=== PATIENT | female | born 1975 | race Caucasian/White ===

== ENCOUNTER 2020-09-28 14:23 | Outpatient (RCR) | payer OTHER ==
[2020-12-14] MEDS ORDERED: FERR324T4 PO (17:09)
[2020-12-14] MEDS ORDERED: OXYC1TAB11 PO ×2 (17:42→17:58)
== END 2020-12-27 | disposition home or self-care (01) ==
LOC: ONC 14:23
PROVIDERS: ATTEND Radiology Radiation Oncology
DX: C50.111 Malignant neoplasm of central portion of right female breast (principal)
CPT/HCPCS: 99204

== ENCOUNTER → 2020-09-29 | Outpatient (CLI) | payer OTHER ==
[~2020-09-29] MED LIST: GADOBUTROL 7.5 MMOL/7.5 ML (GADAVIST) VIAL IV ONE
--- NOTE | 2020-09-30 08:07 | Diagnostic Imaging Report ---
Reason for examination: Bilateral breast masses. Previous studies from [place] from 07/01/2020 were reviewed. TECHNIQUE: Utilizing 1.5 Arlette Siemens magnet, patient was placed in a prone position with a dedicated breast coil utilized. Axial STIR and fat sat T2 precontrasted images and axial T1 with and without fat-sat images were obtained. Postcontrast high-resolution dynamic images were also obtained. Pre and post contrasted images are then evaluated with [employer] for evaluation of possible angiogenesis. 6 mL of Gadavist was injected. The breast tissue is heterogeneously dense. There is mild background parenchymal enhancement. RIGHT BREAST: There is an irregular enhancing mass in the right breast at 12 o'clock position 6 cm from the nipple correlating with the previous mammogram and ultrasound findings. There is an in situ biopsy marker but the biopsy results are still pending at the time of interpretation. This mass is suspicious for carcinoma. Dimensions are 1 cm x 1 cm x 1 cm. There is no evidence for multifocal, multicentric disease. No skin, nipple or chest wall involvement. LEFT BREAST: There is an enhancing mass in the left breast at the 1 o'clock position 6 cm from the nipple. A possible additional small mass is located in the central left breast 6 cm from the nipple measuring 0.8 cm in largest diameter. These could be fibroadenomas. MILANA BASINS: No suspicious adenopathy in the bilateral regional milana basins. IMPRESSION: 1. There is a suspicious irregular enhancing mass in the right breast at the 12 o'clock position 6 cm from the nipple correlating with the previous outside mammogram and ultrasound images. The mass is suspicious for malignancy. There is a biopsy marker within the mass but the results are not known at the time of interpretation. If pathology does show a malignancy in this location, this appears to be a unifocal lesion with measurements of 1 cm x 1 cm x 1 cm. Correlation and follow up with pathology is needed. 2. There is one mass in the left breast at the 1 o'clock position 6 cm from the nipple corresponding with an mass on mammography. Ultrasound is recommended with ultrasound-guided biopsy if clinically indicated. 3. There is a possible 0.8 cm mass in the central left breast, middle depth, 6 cm from the nipple. Ultrasound is recommended with ultrasound-guided biopsy if clinically indicated. ACR BI-RADS Category 4: Suspicious abnormality. Recommendations: Follow up with pathology for the right breast mass biopsy. Left breast 2nd look ultrasound in the 2 locations described above with biopsy of one or both locations as clinically indicated. Dictated by: Dictated on workstation # [id number]
== END ==
LOC: RAD 14:51
PROVIDERS: ATTEND Surgery
DX: C50.811 Malignant neoplasm of overlapping sites of right female breast (principal); N63.21 Unspecified lump in the left breast, upper outer quadrant
CPT/HCPCS: 77049

== ENCOUNTER → 2020-10-05 | Outpatient (CLI) | payer OTHER ==
--- NOTE | 2020-10-06 09:19 | Diagnostic Imaging Report ---
INDICATION: Right breast carcinoma. Patient had abnormal MRI demonstrating abnormalities of the left breast. Study is performed for 2nd look ultrasound. Correlation is made with MRI breast study from 09/29/2020. 1:00 location left breast 6 cn from the nipple demonstrates a hypoechoic solid nodule measuring 10 mm x 8 mm x 8 mm. This is indeterminant. There is an ovoid hypoechoic nodule retroareolar 6:00 location measuring 9 mm x 3 mm x 6 mm. No internal vascularity seen. No other abnormalities are detected. IMPRESSION: BI-RADS Category 4 1. Hypoechoic solid nodule 1:00 location left breast 6 cm from the nipple. While this could represent a fibroadenoma, tissue sampling is recommended. This would be amenable to ultrasound-guided core biopsy. 2. Indeterminate hypoechoic nodule retroareolar 6:00 location. Tissue sampling of this lesion with ultrasound guidance could be performed as well. Dictated by: Dictated on workstation # [id number]
== END ==
LOC: RAD 10:45
PROVIDERS: ATTEND Surgery
DX: C50.811 Malignant neoplasm of overlapping sites of right female breast (principal); N63.21 Unspecified lump in the left breast, upper outer quadrant; Z17.0 Estrogen receptor positive status [ER+]
CPT/HCPCS: 76642

== ENCOUNTER → 2020-10-17 | Outpatient (CLI) | payer OTHER ==
[~2020-10-17] VITALS: Ht 154.9 cm; Wt 67.3 kg
[~2020-10-17] MED LIST changes: -GADOBUTROL 7.5 MMOL/7.5 ML (GADAVIST) VIAL IV ONE; +LIDOCAINE 1% INJ 20 ML 20 ML VIAL INJ ONE
--- NOTE | 2020-10-17 09:57 | Diagnostic Imaging Report ---
INDICATION: Left breast nodule. Patient presents for biopsy. Correlation is made with breast ultrasound from 10/05/2020. Sonographic interrogation of the left breast was performed. Patient presented for 2 biopsies. Biopsy of a nodule at 1:00 location as well as a questionable cystic lesion at the 6:00 retroareolar region. In surveying the retroareolar region today only a ductal dilatation is identified. There is a small cyst but no concerning mass is identified. Therefore, a retroareolar lesion will not be biopsied. Ultrasound imaging of the upper left breast was performed to evaluate appropriate entry site. The left breast was then prepped and draped in usual sterile fashion. Small amount 1% lidocaine was utilized for local anesthesia. Hand held 13-gauge mammotome vacuum-assisted device was advanced and placed along the undersurface of the hypoechoic nodule 1:00 location. 4 core biopsies were obtained. Marker clip was then deployed. Hemostasis was obtained using manual compression. Patient tolerated the procedure well and was sent for post procedure mammogram in satisfactory condition. IMPRESSION: Successful ultrasound guided core biopsy of the hypoechoic nodule at 1:00 location of the left breast utilizing hand-held vacuum-assisted mammotome device. Pathology results are currently pending. Dictated by: Dictated on workstation # [id number]
--- NOTE | 2020-10-17 11:53 | Diagnostic Imaging Report ---
INDICATION: Left breast nodule, status post ultrasound-guided biopsy. 2-D CC and ML mammography was performed after patient underwent ultrasound guided biopsy of a nodule in the upper left breast. Images demonstrate a marker clip in the upper and outer aspect of left breast, adjacent to a nodule. The left breast is heterogeneously dense. IMPRESSION: Biopsy clip appears to be in appropriate location in the upper and outer aspect of the left breast, status post ultrasound-guided core biopsy. Dictated by: Dictated on workstation # [id number]
== END ==
LOC: RAD 08:33
PROVIDERS: ATTEND Family Medicine
DX: D48.62 Neoplasm of uncertain behavior of left breast (principal); N63.21 Unspecified lump in the left breast, upper outer quadrant
CPT/HCPCS: 19083; 77065; A4648; G0279

== ENCOUNTER 2020-12-12 16:29 | Inpatient (IN) | payer OTHER ==
[2020-12-12] VITALS (7 sets, daily range): BP systolic 132–160; BP diastolic 80–92
[~2020-12-12] VITALS: Ht 154 cm; Wt 62.1 kg
[2020-12-12 16:57] LABS: BASOPHILS # (AUTO) 0.1 10^3/uL (0.0-0.1); BASOPHILS % (AUTO) 1 % (0-10); EOSINOPHILS # (AUTO) 0.1 10^3/uL (0.0-0.3); EOSINOPHILS % (AUTO) 1 % (0-10); LYMPHOCYTES % (AUTO) 21 % (12-44); MEAN CORPUSCULAR HEMOGLOBIN 15 pg (25-34); MEAN CORPUSCULAR HGB CONC 26 g/dL (32-36); MEAN CORPUSCULAR VOLUME 57 fL (80-99); MEAN PLATELET VOLUME 8.9 fL (9.0-12.2); MONOCYTES # (AUTO) 0.6 X 10^3 (0.0-1.0); MONOCYTES % (AUTO) 6 % (0-12); NEUTROPHILS # (AUTO) 6.5 X 10^3 (1.8-7.8); NEUTROPHILS % (AUTO) 71 % (42-75); PLATELET COUNT 491 10^3/uL (130-400); WHITE BLOOD COUNT 9.2 10^3/uL (4.3-11.0)
[2020-12-12 17:01] LABS: HEMATOCRIT 18 % (35-52); HEMOGLOBIN 4.7 g/dL (11.5-16.0)
--- NOTE | 2020-12-12 17:09 | ED General ---
General Chief Complaint: General Problems/Pain Stated Complaint: LOW HEMOGLOBIN - 4.9 Nursing Triage Note: PT REPORTS SHE WAS INFORMED THAT HER LAB WORK SHE HAD DONE TODAY AT FOR A PREOP APPT INDICATED HER HEMAGLOBIN WAS LOW. PT WAS INFORMED TO COME TO THE ER TO HAVE IT EVALUATED. Source of Information: Patient Exam Limitations: No Limitations History of Present Illness Date Seen by Provider: Dec 12, 2020 Time Seen by Provider: 17:05 Initial Comments Female patient of [facility] Willard Aguilar presents with reports of hemoglobin of 4.7. She had labs done preoperatively in [place] in preparation for a right breast lumpectomy for right breast cancer (this is scheduled for this 12/15/20). This will be followed with radiation she states. She has not had chemotherapy. As part of her preoperative evaluation she was found to be anemic and referred to the emergency room. She has no history of anemia that she knows of and states that she does not really feel bad. She states that she did have some dark stools but it has been a long time ago. She is not sure if it represented blood or not. She still has menstrual periods and states that they are not particularly heavy but they do seem to last longer than what she thinks would be normal. She takes no medications. It Is very difficult to get a history out of her. She states that someone at is doing this procedure, then she states that it is not at but someone in [place] named Dr. More Bolden. When I asked who her oncologist is she shakes her head "no", she seems very scared in general. Mother at the bedside states that it is someone here at the hospital that she will be seeing from oncology. Timing/Duration: Other Severity: Moderate Associated Systoms: Denies Symptoms Allergies and Home Medications Allergies Coded Allergies: No Known Drug Allergies (Unverified , 09/29/20) Patient Home Medication List Home Medication List Reviewed: Yes Review of Systems Review of Systems Constitutional: see HPI EENTM: see HPI Respiratory: no symptoms reported Cardiovascular: no symptoms reported Gastrointestinal: No abdominal pain Genitourinary: no symptoms reported Skin: no symptoms reported Psychiatric/Neurological: No Symptoms Reported Hematologic/Lymphatic: No Symptoms Reported Past Evpmiks-Zpjnzg-Htbcfo Hx Patient Social History Tobacco Use?: No Smoking Status: Never a Smoker Use of E-Cig and/or Vaping dev: No Substance use?: No Alcohol Use?: No Pt feels they are or have been: No Past Medical History Surgery/Hospitalization HX: no prior x, recently diagnosed with breast ca Physical Exam Vital Signs Vital Signs - First Documented 12/12/20 16:44 Temp 36.4 Pulse 112 Resp 20 B/P (MAP) 154/101 (118) Pulse Ox 100 Capillary Refill : Less Than 3 Seconds Height, Weight, BMI Height: '" Weight: lbs. oz. kg; 28.00 BMI Method: General Appearance: No Apparent Distress, WD/WN Eyes: Bilateral Eye Normal Inspection, Bilateral Eye PERRL, Bilateral Eye EOMI Neck: Full Range of Motion, Normal Inspection Respiratory: No Accessory Muscle Use, No Respiratory Distress Cardiovascular: Normal Peripheral Pulses, Tachycardia (Rate of 106) Extremity: Normal Capillary Refill, Normal Inspection Neurologic/Psychiatric: Alert, Oriented x3 Skin: Warm/Dry, Pallor Progress/Results/Core Measures Suspected Sepsis SIRS Temperature: Pulse: 112 Respiratory Rate: 20 Laboratory Tests 12/12/20 16:45: White Blood Count 9.2 Blood Pressure 154 /101 Mean: 118 Laboratory Tests 12/12/20 16:45: Creatinine 1.23, INR Comment 1.0, Platelet Count 491H, Total Bilirubin 0.2 Results/Orders Lab Results Laboratory Tests Test 12/12/20 16:45 Range/Units White Blood Count 9.2 4.3-11.0 10^3/uL Red Blood Count 3.20 L 3.80-5.11 10^6/uL Hemoglobin 4.7 *L 11.5-16.0 g/dL Hematocrit 18 *L 35-52 % Mean Corpuscular Volume 57 L 80-99 fL Mean Corpuscular Hemoglobin 15 L 25-34 pg Mean Corpuscular Hemoglobin Concent 26 L 32-36 g/dL Red Cell Distribution Width 22.1 H 10.0-14.5 % Platelet Count 491 H 130-400 10^3/uL Mean Platelet Volume 8.9 L 9.0-12.2 fL Immature Granulocyte % (Auto) 0 % Neutrophils (%) (Auto) 71 42-75 % Lymphocytes (%) (Auto) 21 12-44 % Monocytes (%) (Auto) 6 0-12 % Eosinophils (%) (Auto) 1 0-10 % Basophils (%) (Auto) 1 0-10 % Neutrophils # (Auto) 6.5 1.8-7.8 X 10^3 Lymphocytes # (Auto) 2.0 1.0-4.0 X 10^3 Monocytes # (Auto) 0.6 0.0-1.0 X 10^3 Eosinophils # (Auto) 0.1 0.0-0.3 10^3/uL Basophils # (Auto) 0.1 0.0-0.1 10^3/uL Immature Granulocyte # (Auto) 0.0 0.0-0.1 10^3/uL Absolute Reticulocyte Count 53 24-90 10e9/uL Percent Reticulocyte Count 1.67 0.50-2.40 % Prothrombin Time 13.2 12.2-14.7 SEC INR Comment 1.0 0.8-1.4 Sodium Level 141 135-145 MMOL/L Potassium Level 4.2 3.6-5.0 MMOL/L Chloride Level 106 98-107 MMOL/L Carbon Dioxide Level 24 21-32 MMOL/L Anion Gap 11 5-14 MMOL/L Blood Urea Nitrogen 15 7-18 MG/DL Creatinine 1.23 0.60-1.30 MG/DL Estimat Glomerular Filtration Rate 48 BUN/Creatinine Ratio 12 Glucose Level 96 70-105 MG/DL Calcium Level 9.3 8.5-10.1 MG/DL Corrected Calcium 9.1 8.5-10.1 MG/DL Total Bilirubin 0.2 0.1-1.0 MG/DL Aspartate Amino Transf (AST/SGOT) 10 5-34 U/L Alanine Aminotransferase (ALT/SGPT) 13 0-55 U/L Alkaline Phosphatase 88 40-136 U/L Total Protein 8.2 6.4-8.2 GM/DL Albumin 4.2 3.2-4.5 GM/DL Serum Test, Qualitative NEGATIVE NEGATIVE My Orders Orders - HUMA DON APRN Cbc With Automated Diff (12/12/20 16:40) Comprehensive Metabolic Panel (12/12/20 17:02) Protime With Inr (12/12/20 17:02) Iron Tibc %Sat & Ferritin (12/12/20 17:02) Iron Test (Fe) (12/12/20 17:02) Reticulocyte Count (12/12/20 17:02) Hcg,Qualitative Serum (12/12/20 17:02) Red Cells Leukocytes Reduced (12/12/20 17:02) Type And Screen (12/12/20 17:02) Vital Signs/I&O 12/12/20 16:44 Temp 36.4 Pulse 112 Resp 20 B/P (MAP) 154/101 (118) Pulse Ox 100 Capillary Refill : Less Than 3 Seconds Blood Pressure Mean: 118 Departure Impression Primary Impression: Severe anemia Disposition: ADMITTED INPATIENT Condition: Stable Admissions Decision to Admit Reason: Admit from ER (General) Decision to Admit/Date: Dec 12, 2020 Time/Decision to Admit Time: 17:08 Departure-Patient Inst. Referrals: NO,LOCAL PHYSICIAN (PCP/Family) Primary Care Physician HUMA DON APRN Dec 12, 2020 17:09
[2020-12-12 17:14] LABS: ALBUMIN 4.2 GM/DL (3.2-4.5)
[2020-12-12 17:15] LABS: POTASSIUM 4.2 MMOL/L (3.6-5.0)
[2020-12-12 17:16] LABS: CALCIUM 9.3 MG/DL (8.5-10.1)
[2020-12-12 17:17] LABS: TOTAL PROTEIN 8.2 GM/DL (6.4-8.2)
[2020-12-12 17:19] LABS: BILIRUBIN,TOTAL 0.2 MG/DL (0.1-1.0)
[2020-12-12 17:20] LABS: RETICULOCYTE % 1.67 % (0.50-2.40)
[2020-12-12 17:21] LABS: CREATININE SERUM 1.23 MG/DL (0.60-1.30); PROTHROMBIN TIME PATIENT 13.2 SEC (12.2-14.7)
[2020-12-12] MEDS ORDERED: NS IV 500 ML 500 ML IV SCH (18:45)
[2020-12-12] MEDS ORDERED: CATHETER FLUSH 10 ML SYR IV PRN (18:45)
[2020-12-12] MEDS ORDERED: LORazepam 0.5 MG (ATIVAN) TABLET PO PRN (18:45)
[2020-12-12] MEDS: NS IV 1000 ML 1,000 ML IV SCH (18:56)
--- NOTE | 2020-12-12 19:43 | Consultation - Surgery ---
History of Present Illness History of Present Illness Patient Consulted On(sang/time) 12/12/20 19:37 Date Seen by Provider: Dec 12, 2020 Time Seen by Provider: 19:37 History of Present Illness Consult requested by Dr. Carey for anemia. Patient is a 45 year old female who has planned breast lumpectomy in [place] this week. Had blood work that she was found to have hemoglobin of 4.9. Patient states she has felt a little weak lately, but nothing more than usual. Patient since about age of 42 has been having periods that last about 2 weeks. Currently she states she's on her period and spotting a little and seems to be about finished with her period. Patient about a month ago had a couple of episodes of bright red blood per rectum. Not had previously. Never had colonosc opy or egd. She reports acid reflux about twice a week, takes tums and acid quality assurance clerk for which keeps under control. Patient currently getting transfused prbc. Allergies and Home Medications Allergies Coded Allergies: No Known Drug Allergies (Unverified , 09/29/20) Patient Home Medication List Home Medication List Reviewed: Yes Past Sjqozbq-Ivrayb-Jwmomi Hx Patient Social History Smoking Status: Never a Smoker Alcohol Use?: No Have you traveled recently?: No Surgeries History of Surgeries: Yes (breast biopsy) Respiratory History of Respiratory Disorde: No Cardiovascular History of Cardiac Disorders: No Neurological History of Neurological Disord: No Reproductive System : No Genitourinary History of Genitourinary Disor: No Gastrointestinal History of Gastrointestinal Di: Yes (GERD) Musculoskeletal History of Musculoskeletal Dis: No Endocrine History of Endocrine Disorders: No HEENT History of HEENT Disorders: No Cancer Cancer: Breast Psychosocial History of Psychiatric Problem: No Integumentary History of Skin or Integumenta: No Blood Transfusions History of Blood Disorders: No Family Medical History Significant Family History: No Pertinent Family Hx Review of Systems-General Constitutional: No diaphoresis; weakness EENTM: No blurred vision, No double vision Respiratory: No cough, No dyspnea on exertion, No short of breath Cardiovascular: No chest pain Gastrointestinal: heartburn, melena; No nausea, No vomiting Genitourinary: No decreased output, No discharge Musculoskeletal: No back pain, No joint pain Skin: No change in color, No change in hair/nails Psychiatric/Neurological: Denies Anxiety, Denies Depressed, Denies Emotional P roblems All Other Systems Reviewed Negative Unless Noted: Yes (Negative excepted noted.) Physical Exam-General Problems Physical Exam Vital Signs Vital Signs - First Documented 12/12/20 12/12/20 16:44 18:25 Temp 36.4 Pulse 112 Resp 20 B/P (MAP) 154/101 (118) Pulse Ox 100 O2 Delivery Room Air Capillary Refill : Less Than 3 Seconds General Appearance: WD/WN, no apparent distress HEENT: PERRL/EOMI, normal ENT inspection, TMs normal Neck: non-tender, full range of motion, supple, normal inspection Respiratory: chest non-tender, no respiratory distress, no accessory muscle use Cardiovascular: regular rate, rhythm, no JVD Gastrointestinal: non tender, soft, no organomegaly Rectal: deferred Back: normal inspection, no CVA tenderness Extremities: normal range of motion, non-tender Neurologic/Psychiatric: research interviewer II-XII nml as tested, no motor/sensory deficits, alert, normal mood/affect, oriented x 3 Skin: warm/dry, pallor Lymphatic: no adenopathy Data Review Labs Laboratory Tests 12/12/20 16:45: White Blood Count 9.2, Red Blood Count 3.20L, Hemoglobin 4.7*L, Hematocrit 18*L, Mean Corpuscular Volume 57L, Mean Corpuscular Hemoglobin 15L, Mean Corpuscular Hemoglobin Concent 26L, Red Cell Distribution Width 22.1H, Platelet Count 491H, Mean Platelet Volume 8.9L, Immature Granulocyte % (Auto) 0, Neutrophils (%) (Auto) 71, Lymphocytes (%) (Auto) 21, Monocytes (%) (Auto) 6, Eosinophils (%) (Auto) 1, Basophils (%) (Auto) 1, Neutrophils # (Auto) 6.5, Lymphocytes # (Auto) 2.0, Monocytes # (Auto) 0.6, Eosinophils # (Auto) 0.1, Basophils # (Auto) 0.1, Immature Granulocyte # (Auto) 0.0, Absolute Reticulocyte Count 53, Percent Reticulocyte Count 1.67, Prothrombin Time 13.2, INR Comment 1.0, Sodium Level 141, Potassium Level 4.2, Chloride Level 106, Carbon Dioxide Level 24, Anion Gap 11, Blood Urea Nitrogen 15, Creatinine 1.23, Estimat Glomerular Filtration Rate 48, BUN/Creatinine Ratio 12, Glucose Level 96, Calcium Level 9.3, Corrected Calcium 9.1, Total Bilirubin 0.2, Aspartate Amino Transf (AST/SGOT) 10, Alanine Aminotransferase (ALT/SGPT) 13, Alkaline Phosphatase 88, Total Protein 8.2, Albumin 4.2, Serum Test, Qualitative NEGATIVE Assessment/Plan Assessment/Plan Assessment/Plan Anemia Blood in stools menorrhagia/abnormal uterine bleeding Breast cancer GERD Currently transfusing PRBC Started Protonix Clear liquids Follow hgb and transfuse as needed Occult stools Likely prep tomorrow for colonoscopy and egd to be done on saturday. Transvaginal u/s to evaluate for menorrhagia/abnormal uterine bleeding, will need follow up with gynecology. YESY BOYD DO Dec 12, 2020 19:43
[2020-12-12] MEDS: PANTOPRAZOLE 40 MG (PROTONIX) VIAL IV SCH (21:53)
[2020-12-13] VITALS (8 sets, daily range): BP systolic 127–146; BP diastolic 78–95
[2020-12-13 05:26] LABS: BASOPHILS # (AUTO) 0.1 10^3/uL (0.0-0.1); BASOPHILS % (AUTO) 1 % (0-10); EOSINOPHILS # (AUTO) 0.2 10^3/uL (0.0-0.3); EOSINOPHILS % (AUTO) 2 % (0-10); HEMATOCRIT 26 % (35-52); HEMOGLOBIN 7.5 g/dL (11.5-16.0); LYMPHOCYTES # (AUTO) 1.7 10^3/uL (1.0-4.0); LYMPHOCYTES % (AUTO) 19 % (12-44); MEAN CORPUSCULAR HEMOGLOBIN 20 pg (25-34); MEAN CORPUSCULAR HGB CONC 29 g/dL (32-36); MEAN CORPUSCULAR VOLUME 69 fL (80-99); MEAN PLATELET VOLUME 9.1 fL (9.0-12.2); MONOCYTES # (AUTO) 0.6 10^3/uL (0.0-1.0); MONOCYTES % (AUTO) 7 % (0-12); NEUTROPHILS # (AUTO) 6.3 10^3/uL (1.8-7.8); NEUTROPHILS % (AUTO) 72 % (42-75); PLATELET COUNT 343 10^3/uL (130-400); WHITE BLOOD COUNT 8.8 10^3/uL (4.3-11.0)
[2020-12-13 05:40] LABS: CHLORIDE 110 MMOL/L (98-107); SODIUM 141 MMOL/L (135-145)
[2020-12-13 05:42] LABS: CALCIUM 8.5 MG/DL (8.5-10.1); GLUCOSE 91 MG/DL (70-105)
[2020-12-13 05:43] LABS: CARBON DIOXIDE 22 MMOL/L (21-32)
[2020-12-13 05:46] LABS: CREATININE SERUM 0.94 MG/DL (0.60-1.30); GFR ESTIMATED > 60
[2020-12-13 05:47] LABS: BUN/CREATININE RATIO 13
[2020-12-13] MEDS: NS IV 1000 ML 1,000 ML IV SCH ×2 (08:32→21:49)
[2020-12-13] MEDS: PANTOPRAZOLE 40 MG (PROTONIX) VIAL IV SCH (08:32)
--- NOTE | 2020-12-13 10:11 | Diagnostic Imaging Report ---
PROCEDURE: US Non-ob pelvis comp/trans. TECHNIQUE: Multiple realtime grayscale images were obtained of the pelvis in various projections endovaginally. Transabdominal imaging was also performed. INDICATION: Abnormal uterine bleeding. FINDINGS: Uterus measures 7.2 x 5.4 x 5.6 cm. There is diffuse thickening of the endometrium which is heterogeneous in appearance and does show hypervascularity. The right ovary measures 5.2 x 3 x 4 cm. There is a 4.2 cm simple appearing cyst. Left ovary measures 2 x 1 x 1.4 cm. There is normal blood flow to both ovaries. There is no free fluid. IMPRESSION: 1. Abnormal hypertrophic appearing endometrium with vascularity. Endometrial malignancy would be a concern. 2. Simple appearing right ovarian cyst measuring 4.2 cm. Dictated by: Dictated on workstation # [id number]
[2020-12-13] MEDS ORDERED: ACETAMINOPHEN 325 MG TABLET ONE (11:58)
[2020-12-13] MEDS ORDERED: ACETAMINOPHEN 325 MG TABLET PO PRN (12:00)
[2020-12-13] MEDS ORDERED: oxyCODONE/APAP 5/325MG (PERCOCET 5) TABLET PO PRN (12:00)
[2020-12-13] MEDS ORDERED: GOLYTELY POWDER 4000 ML BTL PO NR (12:45)
--- NOTE | 2020-12-13 12:56 | Consultation ---
History of Present Illness History of Present Illness Patient Consulted On(sang/time) 12/13/20 12:54 Date Seen by Provider: Dec 13, 2020 Time Seen by Provider: 12:50 Reason for Visit: severe anemia History of Present Illness She is a 45 year old presenting for consultation for menorrhagia with anemia US with thickened endometrium She is scheduled to have lumpectomy on for breast Ca. 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 However there is a consultation for radiation oncology with information from a breast surgeon in stating infiltrating ductal, grade 2, ER/ND +, Her 2/Zach neg. Patient confirms that she sees Dr. Bey in [place] and Dr. Bey had planned a lumpectomy for . It is then planned to proceed with radiation. (I just spoke with Dr. Bey's office and confirmed the diagnosis and that the surgery is cancelled for tomorrow; she does not have surgery planned pending this workup and diagnosis). She states she had preop yesterday for the surgery on and noted that her hemoglobin was 4.7. She was sent here for transfusion. She has since received 3 units of blood with resultant hemoglobin of 7.3 Iron studies are pending. States she is currently menstruating and this started 11/28. Reports that she is spotting now as though she is nearing the end of this cycle. States that she passes clots but only has to change pads twice a day and those are not soaked through. She states that her menses have lasted longer and longer since around the age of 42. States menses are monthly but last for 2 weeks. She has never had a workup for menorrhagia. She did have an US this morning that showed a thickened endometrium with hypervascularity. Uterus is otherwise not enlarged and there are no masses. There is also a 4-5 cm right ovarian cyst that appear simple.. She reported to general surgery that over the last month has had some BRB per rectum but has never had colonosocopy or EGD. She has not been able to leave a specimen for stool sample. She does have some indigestion for which she takes an acid quality systems engineer about two times weekly. Per Gen surg note, they are considering colonoscopy and EGD tomorrow. 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 Allergies and Home Medications Allergies Coded Allergies: No Known Drug Allergies (Unverified , 09/29/20) Home Medications No Active Prescriptions or Reported Meds Patient Home Medication List Home Medication List Reviewed: Yes Past Tlfuizk-Ohtdfw-Gyehpl Hx Patient Social History Tobacco Use?: No Smoking Status: Never a Smoker Use of E-Cig and/or Vaping dev: No Substance use?: No Alcohol Use?: No Pt feels they are or have been: No Immunizations Up To Date Influenza Vaccine Up-to-Date: No; Not Current Past Medical History Surgery/Hospitalization HX: no prior x, recently diagnosed with breast ca [facility] IN RIGHT BREAST 12-12-20 Surgeries: Yes (breast biopsy) Respiratory: No Cardiac: No Neurological: No : No Last Menstrual Period: Nov 28, 2020 Hx : 1 Hx Para: 1 Hx Total # of Abortions (Sp): 0 Female Reproductive Disorders: Menstrual Problems Genitourinary: No Gastrointestinal: Yes (GERD) Musculoskeletal: No Endocrine: No HEENT: No Breast Did You Recieve Any Treatments: No (planned) Psychosocial: No Integumentary: No Blood Disorders: No Family Medical History No Pertinent Family Hx Review of Systems-General Constitutional: malaise Gastrointestinal: see HPI Genitourinary: see HPI LMP: Nov 28, 2020 Physical Exam-General Problems Physical Exam Vital Signs Vital Signs - First Documented 12/12/20 12/12/20 16:44 18:25 Temp 36.4 Pulse 112 Resp 20 B/P (MAP) 154/101 (118) Pulse Ox 100 O2 Delivery Room Air Capillary Refill : Less Than 3 Seconds General Appearance: no apparent distress Genital/Rectal: other (deferred to OR) Assessment/Plan Assessment/Plan Admission Diagnosis/Plan 1. IDC of the right breast, ER/ND +, Her 2 Zach - 2. anemia 3. menorrhagia 4. thickened endometrium 5. simple cyst of the right ovary Plan - hysteroscopy, dilation and curettage. If Gen Surg plans colonoscopy/EGD tomorrow then we can coordinate surgeries. She will be NPO after midnight for surgery tomorrow. This will help stop bleeding and give pathologic diagnosis, but may not treat menorrhagia if it is a non structural cause. Discussed that she may need further treatment after her breast surgery but that the breast is more important at this point but she may need hysterectomy with BSO at a later time. She needs a reliable, non - hormonal form of contraception as well. Risks of further bleeding, infection, injury to bowel, bladder and ureter were explained to the patient who understands these risks. Family was present for the discussion. Will use prophylactic antibiotics and SCDs. LUIS SINCLAIR DO Dec 13, 2020 12:56
[2020-12-13] MEDS ORDERED: ceFAZolin 2 GM IV Premixed 50 ML IV ONE (14:00)
--- NOTE | 2020-12-13 17:00 | Progress Note - Surgery ---
Subjective Date Seen by a Provider: Dec 13, 2020 Time Seen by a Provider: 15:09 Subjective/Events-last exam Patient feeling little bit better today after having packed red blood cell transfusions. Patient hemoglobin did go up. Patient had transvaginal ultrasound which demonstrated abnormal thickening of the endometrial lining with vascularity. Dr. Geller was consulted. Patient not feeling as weak. She denies any nausea vomiting fever sweats chills shortness of breath or chest pain. Family at bedside as well. Objective Exam Vital Signs Date Time Temp Pulse Resp B/P (MAP) Pulse Ox O2 Delivery O2 Flow Rate FiO2 12/13/20 16:12 36.4 84 18 127/78 (94) 99 Room Air 12/13/20 11:54 37.0 83 18 134/84 (101) 96 Room Air 12/13/20 08:05 36.8 79 18 139/86 (103) 100 Room Air 12/13/20 08:00 100 Room Air 12/13/20 04:00 36.1 77 18 131/82 (98) 98 Room Air 12/13/20 02:05 36.7 85 16 129/83 99 Room Air 12/13/20 00:44 36.4 89 18 128/78 (95) 97 Room Air 12/12/20 22:37 37.1 90 20 135/ 98 Room Air 12/12/20 22:14 36.9 89 20 132/80 98 Room Air 12/12/20 21:58 36.9 89 20 132/80 98 Room Air 12/12/20 20:00 99 Room Air 12/12/20 19:40 37.0 82 18 135/91 (106) 99 Room Air 12/12/20 18:54 37.2 100 18 142/88 100 Room Air 12/12/20 18:46 Room Air 12/12/20 18:38 37.1 97 18 149/92 100 Room Air 12/12/20 18:25 35.9 108 18 160/80 (106) 100 Room Air 12/12/20 18:02 105 18 146/95 100 I & O 12/13/20 07:00 Intake Total 310 ml Output Total 600 ml Balance -290 ml Capillary Refill : Less Than 3 Seconds General Appearance: No Apparent Distress, WD/WN Neck: Full Range of Motion, Normal Inspection Respiratory: No Accessory Muscle Use, No Respiratory Distress Cardiovascular: Normal Peripheral Pulses, Tachycardia (Rate of 106) Gastrointestinal: non tender, soft, no organomegaly Extremity: Normal Capillary Refill, Normal Inspection Neurologic/Psychiatric: Alert, Oriented x3 Skin: Warm/Dry, Pallor Results Lab Laboratory Tests 12/13/20 04:57: White Blood Count 8.8, Red Blood Count 3.74L, Hemoglobin 7.5L, Hematocrit 26L, Mean Corpuscular Volume 69L, Mean Corpuscular Hemoglobin 20L, Mean Corpuscular Hemoglobin Concent 29L, Red Cell Distribution Width 30.5H, Platelet Count 343, Mean Platelet Volume 9.1, Immature Granulocyte % (Auto) 0, Neutrophils (%) (Auto) 72, Lymphocytes (%) (Auto) 19, Monocytes (%) (Auto) 7, Eosinophils (%) (Auto) 2, Basophils (%) (Auto) 1, Neutrophils # (Auto) 6.3, Lymphocytes # (Auto) 1.7, Monocytes # (Auto) 0.6, Eosinophils # (Auto) 0.2, Basophils # (Auto) 0.1, Immature Granulocyte # (Auto) 0.0, Sodium Level 141, Potassium Level 4.0, Chloride Level 110H, Carbon Dioxide Level 22, Anion Gap 9, Blood Urea Nitrogen 12, Creatinine 0.94, Estimat Glomerular Filtration Rate > 60, BUN/Creatinine Rat io 13, Glucose Level 91, Calcium Level 8.5 12/13/20 14:05: Lab Scanned Report Transfusion Reaction Form 12/13/20 14:40: Influenza Type A (RT-PCR) Not Detected, Influenza Type B (RT-PCR) Not Detected, SARS-CoV-2 RNA (RT-PCR) Not Detected Assessment/Plan Assessment/Plan Assessment/Plan Anemia Right breast cancer Blood in stools Thickened endometrium/abnormal uterine bleeding/menorrhagia. Patient discussed risk and benefits of having EGD and colonoscopy. She understands risk and benefits and wishes to proceed. Patient to have prep today and n.p.o. after midnight. Can have clear liquids up till midnight. Patient also to have hysteroscopy and D&C tomorrow as well will coordinate with Dr. Geller. All hemoglobin transfuse PRBC as needed YESY BOYD DO Dec 13, 2020 17:00
[2020-12-13] MEDS ORDERED: IRON SUCROSE 200 MG/10 ML (VENOFER) VIAL IV NR (18:30)
--- NOTE | 2020-12-13 18:38 | History & Physical-Hospitalist ---
History of Present Illness HPI/Chief Complaint Liliana Larios is a 45 year old female who was recently diagnosed with breast cancer and found to be anemic on routine preop labs prior to a lumpectomy. She was scheduled to undergo lumpectomy for invasive ductal carcinoma of the right breast. She says they planned to perform radiation afterward, but no chemotherapy. She was udnergoing preop labs and was found to have a hemoglobin of 4. She reports that she is currently having her menses. She reports prolonged menses since the age of 42. Her periods are monthly and last two weeks. She reports that she has had bright red blood per rectum, most recently about a month ago. She denies melena. She denies any other bleeding issues. She has not had fevers, chills, chest pain, shortness of breath, cough, abdominal pain, nausea, vomiting, diarrhea, or dysuria. Source: patient Exam Limitations: no limitations Date Seen 12/13/20 Time Seen by a Provider: 10:45 Attending Physician Tia Barakat MD PCP No,Local Physician Referring Physician Date of Admission Dec 12, 2020 at 17:11 Home Medications & Allergies Home Medications Reviewed patient Home Medication Reconciliation performed by pharmacy medication reconciliations durability technician and/or nursing. Patients Allergies have been reviewed. Allergies Allergies Coded Allergies No Known Drug Allergies (Unverified09/29/20) Past Wiiaama-Borjum-Uqdruu Hx Patient Social History Tobacco Use?: No Smoking Status: Never a Smoker Use of E-Cig and/or Vaping dev: No Substance use?: No Alcohol Use?: No Pt feels they are or have been: No Immunizations Up To Date Tetanus Booster (TDap): Unknown Hepatitis A: No Hepatitis B: Yes Current Status status: No Advance Directives: No Communicates: Verbally Primary Language: Moldovan Preferred Spoken Language: Moldovan Is interpretation needed?: No Sensory deficits: Vision impairment Past Medical History Breast Did You Recieve Any Treatments: No (planned) Blood Disorders: No Family Medical History No Pertinent Family Hx Review of Systems Constitutional: no symptoms reported EENTM: no symptoms reported Respiratory: no symptoms reported Cardiovascular: no symptoms reported Gastrointestinal: other (hematochezia) Genitourinary: no symptoms reported Musculoskeletal: no symptoms reported Skin: no symptoms reported Psychiatric/Neurological: No Symptoms Reported Physical Exam Physical Exam Vital Signs Vital Signs - First Documented 12/12/20 12/12/20 16:44 18:25 Temp 36.4 Pulse 112 Resp 20 B/P (MAP) 154/101 (118) Pulse Ox 100 O2 Delivery Room Air Capillary Refill : Less Than 3 Seconds Height, Weight, BMI Height: '" Weight: lbs. oz. kg; 26.18 BMI Method: General Appearance: No Apparent Distress, WD/WN HEENT: PERRL/EOMI, Pharynx Normal Neck: Normal Inspection, Non Tender, Supple Respiratory: Lungs Clear, Normal Breath Sounds, No Respiratory Distress Cardiovascular: Regular Rate, Rhythm, No Edema, No Murmur Gastrointestinal: Normal Bowel Sounds, Non Tender, Soft Extremity: Normal Inspection, Non Tender, No Pedal Edema Neurologic/Psychiatric: Alert, Oriented x3, No Motor/Sensory Deficits, Normal Mood/Affect Skin: Normal Color, Warm/Dry Lymphatic: No Adenopathy Results Results/Procedures Labs Laboratory Tests 12/12/20 16:45 12/13/20 04:57 Patient resulted labs reviewed. Imaging: Reviewed Imaging Report Assessment/Plan Admission Diagnosis Severe anemia Admission Status: Inpatient Order (span 2 midnights) Reason for Inpatient Admission: Surgery and INVESTIGATION SPECIALIST evaluation Assessment and Plan Severe anemia Iron deficiency anemia Menorrhagia Hematochezia Invasive ductal carcinoma of the right breast, stage 2 Hgb 4.7 Transfused 2 units PRBC Hgb increased to 7.5 Monitor and transfuse for Hgb 7 or less Iron studies with severe iron deficiency Begin Venofer General surgery consulted, appreciate assistance Planning for colon prep today followed by EGD/colonoscopy tomorrow Transvaginal ultrasound with thickened/hypervascular endometrium OBGYN consulted, appreciate assistance Planning for hysteroscopy, dilation and curettage tomorrow DVT prophylaxis: ambulation, pharmacologic held due to active bleeding Diagnosis/Problems Diagnosis/Problems (1) Severe anemia Status: Acute (2) TRINI (iron deficiency anemia) Status: Acute Qualifiers: Iron deficiency anemia type: chronic blood loss Qualified 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
[2020-12-13] MEDS ORDERED: diphenhydrAMINE 25 MG TAB (BENADRYL) PO PRN (20:00)
[2020-12-13] MEDS ORDERED: ANTACID SUSP 30 ML UDC (MYLANTA) PO PRN (20:00)
[2020-12-13] MEDS ORDERED: ONDANSETRON 4 MG (ZOFRAN) ORAL DISSOLVE TAB PO PRN (20:00)
[2020-12-13] MEDS ORDERED: MELATONIN 3 MG TABLET PO PRN (20:00)
[2020-12-13] MEDS ORDERED: ONDANSETRON 4 MG/2 ML (SDV) Z0FRAN IV PRN (20:00)
[2020-12-13] MEDS ORDERED: polyethylene glycoL POWDER 17 GM (MIRALAX) PACK PO PRN (20:00)
[2020-12-14] VITALS (10 sets, daily range): BP systolic 119–164; BP diastolic 81–99
[2020-12-14] MEDS: NS IV 1000 ML 1,000 ML IV SCH ×2 (04:04→09:54)
[2020-12-14 06:38] LABS: BASOPHILS # (AUTO) 0.1 10^3/uL (0.0-0.1); BASOPHILS % (AUTO) 1 % (0-10); EOSINOPHILS # (AUTO) 0.2 10^3/uL (0.0-0.3); EOSINOPHILS % (AUTO) 1 % (0-10); HEMATOCRIT 27 % (35-52); HEMOGLOBIN 7.8 g/dL (11.5-16.0); LYMPHOCYTES # (AUTO) 0.6 10^3/uL (1.0-4.0); LYMPHOCYTES % (AUTO) 5 % (12-44); MEAN CORPUSCULAR HEMOGLOBIN 20 pg (25-34); MEAN CORPUSCULAR HGB CONC 29 g/dL (32-36); MEAN CORPUSCULAR VOLUME 69 fL (80-99); MEAN PLATELET VOLUME 9.2 fL (9.0-12.2); MONOCYTES # (AUTO) 0.5 10^3/uL (0.0-1.0); MONOCYTES % (AUTO) 4 % (0-12); NEUTROPHILS % (AUTO) 88 % (42-75); PLATELET COUNT 377 10^3/uL (130-400); WHITE BLOOD COUNT 12.5 10^3/uL (4.3-11.0)
[2020-12-14 06:55] LABS: CHLORIDE 110 MMOL/L (98-107); POTASSIUM 3.8 MMOL/L (3.6-5.0); SODIUM 140 MMOL/L (135-145)
[2020-12-14 06:56] LABS: CALCIUM 8.5 MG/DL (8.5-10.1); GLUCOSE 90 MG/DL (70-105)
[2020-12-14 06:58] LABS: CARBON DIOXIDE 19 MMOL/L (21-32)
[2020-12-14 07:00] LABS: CREATININE SERUM 0.87 MG/DL (0.60-1.30); GFR ESTIMATED > 60; HYPOCHROMASIA MARKED; LYMPHOCYTES % (MANUAL) 8 %; MONOCYTES % (MANUAL) 4 %; NEUTROPHILS % (MANUAL) 88 %
[2020-12-14 07:01] LABS: ANISOCYTOSIS MODERATE; BUN/CREATININE RATIO 8; MICROCYTOSIS MODERATE
[2020-12-14] MEDS: PANTOPRAZOLE 40 MG (PROTONIX) VIAL IV SCH (09:00)
--- NOTE | 2020-12-14 09:22 | Progress Note - Surgery ---
Subjective Date Seen by a Provider: Dec 14, 2020 Time Seen by a Provider: 09:20 Subjective/Events-last exam Tolerated prep. Not noticed any blood in stools. Patient denies any new complaints. Denies n/v fever sweats chills shortness of breath or chest pain. Objective Exam Vital Signs Date Time Temp Pulse Resp B/P (MAP) Pulse Ox O2 Delivery O2 Flow Rate FiO2 12/14/20 07:21 37.4 96 18 124/81 (95) 96 Room Air 12/14/20 03:23 36.8 93 18 142/83 (102) 100 Room Air 12/13/20 23:59 36.6 74 18 143/95 (111) 100 Room Air 12/13/20 20:00 99 Room Air 12/13/20 20:00 36.7 81 20 146/87 (106) 97 Room Air 12/13/20 16:12 36.4 84 18 127/78 (94) 99 Room Air 12/13/20 11:54 37.0 83 18 134/84 (101) 96 Room Air I & O 12/14/20 07:00 Intake Total 4980 ml Output Total 3200 ml Balance 1780 ml Capillary Refill : Less Than 3 Seconds General Appearance: No Apparent Distress, WD/WN HEENT: PERRL/EOMI, Pharynx Normal Neck: Normal Inspection, Non Tender, Supple Respiratory: Lungs Clear, Normal Breath Sounds, No Respiratory Distress Cardiovascular: Regular Rate, Rhythm, No Edema, No Murmur Gastrointestinal: non tender, soft, no organomegaly Extremity: Normal Inspection, Non Tender, No Pedal Edema Neurologic/Psychiatric: Alert, Oriented x3, No Motor/Sensory Deficits, Normal Mood/Affect Skin: Normal Color, Warm/Dry Lymphatic: No Adenopathy Results Lab Laboratory Tests 12/13/20 14:05: Lab Scanned Report Transfusion Reaction Form 12/13/20 14:40: Influenza Type A (RT-PCR) Not Detected, Influenza Type B (RT-PCR) Not Detected, SARS-CoV-2 RNA (RT-PCR) Not Detected 12/13/20 16:20: Stool Occult Blood Immunoassay POSITIVEH 12/14/20 05:46: White Blood Count 12.5H, Red Blood Count 3.95, Hemoglobin 7.8L, Hematocrit 27L, Mean Corpuscular Volume 69L, Mean Corpuscular Hemoglobin 20L, Mean Corpuscular Hemoglobin Concent 29L, Red Cell Distribution Width 30.9H, Platelet Count 377, Mean Platelet Volume 9.2, Immature Granulocyte % (Auto) 1, Neutrophils (%) (Auto) 88H, Lymphocytes (%) (Auto) 5L, Monocytes (%) (Auto) 4, Eosinophils (%) (Auto) 1, Basophils (%) (Auto) 1, Neutrophils # (Auto) 11.0H, Lymphocytes # (Auto) 0.6L, Monocytes # (Auto) 0.5, Eosinophils # (Auto) 0.2, Basophils # (Auto) 0.1, Immature Granulocyte # (Auto) 0.1, Neutrophils % (Manual) 88, Lymphocytes % (Manual) 8, Monocytes % (Manual) 4, Hypochromasia MARKED, Anisocytosis MODERATE, Microcytosis MODERATE, Sodium Level 140, Potassium Level 3.8, Chloride Level 110H, Carbon Dioxide Level 19L, Anion Gap 11, Blood Urea Nitrogen 7, Creatinine 0.87, Estimat Glomerular Filtration Rate > 60, BUN/Creatinine Ratio 8, Glucose Level 90, Calcium Level 8.5 Assessment/Plan Assessment/Plan Assessment/Plan Anemia Right breast cancer Blood in stools Thickened endometrium/abnormal uterine bleeding/menorrhagia. Patient discussed again risks and benefits of having EGD and colonoscopy to be done today. She understands risk and benefits and wishes to proceed. Patient to n.p.o. Patient also to have hysteroscopy and D&C today as well will coordinate with Dr. Geller. All hemoglobin transfuse PRBC as needed YESY BOYD DO Dec 14, 2020 09:22
--- NOTE | 2020-12-14 11:55 | Progress Note-Pre Operative ---
Pre-Operative Progress Note H&P Reviewed The H&P was reviewed, patient examined and no changes noted. Date Seen by Provider: Dec 14, 2020 Time Seen by Provider: 11:50 Date H&P Reviewed: Dec 14, 2020 Time H&P Reviewed: 11:50 Pre-Operative Diagnosis: AUB, menorrhagia, thick. endometrium, anemia, IDC of breast LUIS SINCLAIR DO Dec 14, 2020 11:55
[2020-12-14] MEDS ORDERED: LIDOCAINE PF 2% 5 ML (XYLOCAINE) VIAL ONE (11:59)
[2020-12-14] MEDS ORDERED: ONDANSETRON 4 MG/2 ML (SDV) Z0FRAN ONE (11:59)
[2020-12-14] MEDS ORDERED: fentaNYL INJ 100 MCG/2 ML AMP ONE (11:59)
[2020-12-14] MEDS ORDERED: proPOfol 200 MG/20 ML (DIPRIVAN) VIAL IV ONE (11:59)
[2020-12-14] MEDS ORDERED: SEVOFLURANE (ULTANE) 15 ML INHAL SOLN ONE ×2 (11:59→12:40)
[2020-12-14] MEDS ORDERED: ROCURONIUM 10 MG/ML 5 ML SYRINGE IV ONE (11:59)
[2020-12-14] MEDS ORDERED: MIDAZOLAM 2 MG/2 ML (VERSED) VIAL ONE (12:00)
[2020-12-14] MEDS ORDERED: MEPERIDINE (DEMEROL) INJ 50 MG/ML IVP ONE (12:15)
[2020-12-14] MEDS ORDERED: fentaNYL INJ 100 MCG/2 ML AMP IVP ONE (12:15)
[2020-12-14] MEDS ORDERED: ONDANSETRON 4 MG/2 ML (SDV) Z0FRAN IVP PRN (12:15)
[2020-12-14] MEDS ORDERED: morphine INJ 10 MG/ML 1ML (SYR OR VIAL) IVP ONE (12:15)
[2020-12-14] MEDS: LACTATED RINGERS 1,000 ML IV PRN ×2 (12:22→13:23)
[2020-12-14] MEDS ORDERED: ceFAZolin INJECTION 2,000 MG ONE (12:29)
--- NOTE | 2020-12-14 12:59 | Progress Note - Hospitalist ---
Subjective HPI/CC On Admission Date Seen by Provider: Dec 14, 2020 Time Seen by Provider: 10:35 Liliana Larios is a 45 year old female who was recently diagnosed with breast cancer and found to be anemic on routine preop labs prior to a lumpectomy. She was scheduled to undergo lumpectomy for invasive ductal carcinoma of the right breast. She says they planned to perform radiation afterward, but no chemotherapy. She was udnergoing preop labs and was found to have a hemoglobin of 4. She reports that she is currently having her menses. She reports prolonged menses since the age of 42. Her periods are monthly and last two weeks. She r eports that she has had bright red blood per rectum, most recently about a month ago. She denies melena. She denies any other bleeding issues. She has not had fevers, chills, chest pain, shortness of breath, cough, abdominal pain, nausea, vomiting, diarrhea, or dysuria. Subjective/Events-last exam She is doing well this morning. She does not think she has had any ongoing blee ding. She has not had any hematochezia. She finished her colon prep. Objective Exam Vital Signs Vital Signs Date Time Temp Pulse Resp B/P (MAP) Pulse Ox O2 Delivery O2 Flow Rate FiO2 12/14/20 11:11 36.6 82 18 135/85 (102) 99 Room Air Capillary Refill : Less Than 3 Seconds General Appearance: No Apparent Distress, WD/WN, Anxious Respiratory: Lungs Clear, Normal Breath Sounds, No Respiratory Distress Cardiovascular: Regular Rate, Rhythm, No Edema, No Murmur Gastrointestinal: Normal Bowel Sounds, Non Tender, Soft Extremity: Normal Inspection, Non Tender, No Pedal Edema Neurologic/Psychiatric: Alert, Oriented x3, No Motor/Sensory Deficits Skin: Warm/Dry, Pallor Results/Procedures Lab Laboratory Tests 12/14/20 05:46 Patient resulted labs reviewed. Imaging: Reviewed Imaging Report Assessment/Plan Assessment and Plan Assess & Plan/Chief Complaint Severe anemia Iron deficiency anemia Menorrhagia Hematochezia Invasive ductal carcinoma of the right breast, stage 2 Hgb 4.7 on arrival s/p 2 units PRBC Hgb 7.8 today, stable Monitor and transfuse for Hgb 7 or less Iron studies with severe iron deficiency Continue Venofer, transition to oral iron supplement on discharge General surgery consulted, appreciate assistance Planning for colon prep today followed by EGD/colonoscopy today Transvaginal ultrasound with thickened/hypervascular endometrium OBGYN consulted, appreciate assistance Planning for hysteroscopy, dilation and curettage today, coordinating with scopes DVT prophylaxis: ambulation, pharmacologic held due to active bleeding Diagnosis/Problems Diagnosis/Problems (1) Severe anemia Status: Acute (2) TRINI (iron deficiency anemia) Status: Acute Qualifiers: Iron deficiency anemia type: chronic blood loss Qualified Codes: D50.0 - Iron deficiency anemia secondary to blood loss (chronic) (3) Menorrhagia Status: Acute Qualifiers: Menorrhagia type: with regular cycle Qualified Codes: N92.0 - Excessive and frequent menstruation with regular cycle (4) Hematochezia Status: Acute (5) Invasive ductal carcinoma of right breast, stage 2 Status: Acute (6) Endometrial thickening on ultrasound Status: Acute (7) Ovarian cyst Status: Acute Qualifiers: Laterality: right Qualified Codes: N83.201 - Unspecified ovarian cyst, right side TIA BARAKAT MD Dec 14, 2020 12:59
--- NOTE | 2020-12-14 13:09 | Operative Report ---
Operative Report Date of Procedure/Surgery Dec 14, 2020 Surgeon (s) LUIS SINCLAIR DO Tax Auditor (s): NA Post-Operative Diagnosis thickened endometrium, anemia, abnormal uterine bleeding Procedure Performed hysteroscopy, dilation and curettage Description of Procedure Anesthesia Type: General Estimated blood loss (mL): minimal Specimen(s) collected/removed endometrial curettings Description of the Procedure With informed consent the patient was taken to the operating room where general anesthesia was found to be adequate. There was some difficulty with intubation but this was successful (see anesthesia) and once adequate, she was prepped and draped in the usual sterile fashion in the dorsolithotomy position. She is currently menstruating and the pad and underpants were removed. The bladder was drained of clear yellow urine. A speculum was placed in the vagina and the cervix was grasped with a single toothed tenaculum and the cervix was gently dilated with abelino dilators. The hysteroscope was then inserted and the findings are as below. . I then removed the hysteroscope and a curettage was done removing the polypoid areas. The scope was reinserted confirming the curettage was complete and there was not any active bleeding. The tenaculum was removed from the cervix. The instruments were removed and the patient was taken to recovery in a stable condition. Sponge and instrument counts were correct times two. Findings of the Procedure very thick, fluffy endometrium with polypoid areas Allergies and Home Medications Allergies Coded Allergies: No Known Drug Allergies (Unverified , 09/29/20) Home Medications No Active Prescriptions or Reported Meds Patient Home Medication List Home Medication List Reviewed: Yes Copy Copies To 1: Johana Bey MD; ANA TAM MD, ANGELA C DO Dec 14, 2020 13:09
--- NOTE | 2020-12-14 13:16 | Discharge Inst-Women's Service ---
Discharge Inst-Women's Serv Depart Medication/Instructions Final Diagnosis anemia thickened endometrium abnormal uterine bleeding breast cancer Problems Reviewed?: Yes Consults/Follow Up Additional Follow Up: Yes (1-2 weeks for post operative exam to discuss pathology (may coordinate with Dr. Mariano's follow up if possible)) Activity Activity: Activity as Tolerated NO SMOKING: NO SMOKING Nothing Inside Vagina: No Douching, No [place], No Tampons Diet Discharge Diet: No Restrictions Symptoms to Report to : Bleeding Excessive (> 1 pad per hour x 2 hours) For Any Problems or Questions: Contact Your Physician LUIS SINCLAIR DO Dec 14, 2020 13:16
[2020-12-14] MEDS ORDERED: GLYCOPYRROLATE 0.2 MG/ML (ROBINUL) 2 ML VIAL ONE (13:22)
[2020-12-14] MEDS ORDERED: NEOSTIGMINE 3 MG/3 ML VIAL ONE (13:22)
[2020-12-14] MEDS ORDERED: ceFAZolin INJECTION 1,000 MG VIAL IV ONE (14:30)
[2020-12-14] MEDS ORDERED: FERR324T4 PO (17:09)
[2020-12-14] MEDS ORDERED: OXYC1TAB11 PO ×2 (17:42→17:58)
--- NOTE | 2020-12-15 02:45 | OPERATIVE REPORT ---
DATE OF SERVICE: 12/14/2020 PREOPERATIVE DIAGNOSES: Anemia, blood in stools, thickened endometrium and abnormal uterine bleeding. POSTOPERATIVE DIAGNOSES: Normal colon, normal esophagogastroduodenoscopy. PROCEDURE: EGD and colonoscopy. ANESTHESIA: General. ESTIMATED BLOOD LOSS: None. COMPLICATIONS: None. INDICATIONS: The patient is a 45-year-old female with breast cancer, but was found to be severely anemic. She reports blood in her stools recently. She also reports abnormal uterine bleeding and was found to have thickened endometrium. Dr. Geller doing hysteroscopy, D and C today and the patient did bowel prep for colonoscopy and EGD for further evaluation. The patient understands risks and benefits of procedure and wished to proceed. Consent was signed in the chart. DESCRIPTION OF PROCEDURE: The patient was in the operating room. She was in lithotomy position. Scope was inserted in mouth, down the esophagus, stomach and into the duodenum without difficulty. There were no polyps, masses or ulcerations within the duodenum. Scope was slowly retracted back into the stomach where it was further insufflated. No polyps, masses or ulcerations. Scope was retroflexed noting no other pathology. Scope was returned to its normal position, slowly withdrawn to distal esophagus, had normal appearance. No polyps, masses or ulcerations. No erythematous changes. Scope was then slowly retracted back to completely remove noting no other pathology. Digital rectal exam was performed. There were no palpable polyps, masses or ulcerations. Scope was inserted in the rectum and advanced all the way to cecum with minimal difficulty. Prep was adequate. Scope was then slowly retracted back. No polyps, masses or ulcerations within the cecum. The ileocecal valve was intubated and had normal appearance. Scope was continuously retracted back into the colon and then continued slowly retracted back. No polyps, masses or ulcerations. Again noting the cecum, ascending, transverse, descending and sigmoid colon. Once in the rectum, rectum was narrow and scope was unable to be retroflexed; therefore, multiple insertions and retractions were made noting no other pathology. Scope was then slowly retracted back until completely removed. The patient tolerated procedure well without any complications. She was taken to recovery room in stable condition. RECOMMENDATIONS: The patient will need repeat colonoscopy per screening guidelines. The patient to follow up with Dr. Geller regarding pathology for her hysteroscopy/D and C. Job ID: [id number] DocumentID: [id number] Dictated Date: 12/14/2020 22:41:21 Yard Cleaner Date: 12/15/2020 02:45:05 Dictated By: YESY BOYD DO
[2020-12-15] MEDS ORDERED: IRON SUCROSE 200 MG/10 ML (VENOFER) VIAL IV SCH (09:00)
--- NOTE | 2020-12-15 13:35 | Anesthesia-General Post-Op ---
General Patient Condition Mental Status/LOC: Same as Preop Cardiovascular: Satisfactory Nausea/Vomiting: Absent Respiratory: Satisfactory Pain: Controlled Complications: Absent Post Op Complications Complications None Follow Up Care/Instructions Patient Instructions None needed. Anesthesia/Patient Condition Patient Condition Patient is doing well, no complaints, stable vital signs, no apparent adverse anesthesia problems. No complications reported per nursing. WADE ALONSO CRNA Dec 15, 2020 13:35
== END 2020-12-14 19:30 | disposition home or self-care (01) | DRG 988 ==
LOC: EDUNIT# 16:29 → ER 16:31 → 4TH 17:11
PROVIDERS: ADMIT Internal Medicine; ATTEND Internal Medicine
PROC: 0DJD8ZZ Inspection of Lower Intestinal Tract, Via Natural or Artificial Opening Endoscopic (ICD-10-PCS; 2020-12-14)
PROC: 0UDB7ZX Extraction of Endometrium, Via Natural or Artificial Opening, Diagnostic (ICD-10-PCS; principal; 2020-12-14 12:22)
PROC: 0UJD8ZZ Inspection of Uterus and Cervix, Via Natural or Artificial Opening Endoscopic (ICD-10-PCS; 2020-12-14 12:22)
PROC: 0DJ08ZZ Inspection of Upper Intestinal Tract, Via Natural or Artificial Opening Endoscopic (ICD-10-PCS; 2020-12-14 12:22)
DX: D50.9 Iron deficiency anemia, unspecified (principal); K92.1 Melena; N92.0 Excessive and frequent menstruation with regular cycle; N93.9 Abnormal uterine and vaginal bleeding, unspecified; C50.911 Malignant neoplasm of unspecified site of right female breast; K21.9 Gastro-esophageal reflux disease without esophagitis; N83.201 Unspecified ovarian cyst, right side; R93.89 Abnormal findings on diagnostic imaging of other specified body structures; N84.0 Polyp of corpus uteri; Z20.822 Contact with and (suspected) exposure to COVID-19; H54.7 Unspecified visual loss
CPT/HCPCS: 36415; 76830; 76856; 80048; 80053; 82274; 82728; 83540; 83550; 84703; 85007; 85025; 85027; 85045; 85610; 86850; 86900; 86901; 86920; 87081; 87636

== ENCOUNTER 2021-01-10 08:18 | Day surgery (SDC) | payer OTHER ==
[~2021-01-10] VITALS: Ht 154.9 cm; Wt 60.8 kg
[2021-01-10] VITALS (12 sets, daily range): BP systolic 112–154; BP diastolic 65–100
[~2021-01-10 08:18] MED LIST changes: +FERR324T4 PO; -LIDOCAINE 1% INJ 20 ML 20 ML VIAL INJ ONE; +OXYC1TAB11 PO
[2021-01-10] MEDS ORDERED: LACTATED RINGERS 1,000 ML IV PRN (08:45)
[2021-01-10] MEDS ORDERED: ceFAZolin 2 GM IV Premixed 50 ML IV ONE (08:45)
--- NOTE | 2021-01-10 08:54 | Progress Note-Pre Operative ---
Pre-Operative Progress Note H&P Reviewed The H&P was reviewed, patient examined and no changes noted. Date Seen by Provider: Jan 10, 2021 Time Seen by Provider: 09:00 Date H&P Reviewed: Jan 10, 2021 Time H&P Reviewed: 09:00 Pre-Operative Diagnosis: THICKENED ENDOMETRIUM, ANEMIA, BREAST CANCER LUIS SINCLAIR DO Jan 10, 2021 08:54
[2021-01-10] MEDS ORDERED: ONDANSETRON 4 MG/2 ML (SDV) Z0FRAN ONE (09:04)
[2021-01-10] MEDS ORDERED: proPOfol 200 MG/20 ML (DIPRIVAN) VIAL IV ONE (09:04)
[2021-01-10] MEDS ORDERED: fentaNYL INJ 100 MCG/2 ML AMP ONE (09:04)
[2021-01-10] MEDS ORDERED: LIDOCAINE PF 2% 5 ML (XYLOCAINE) VIAL ONE (09:04)
[2021-01-10] MEDS ORDERED: KETOROLAC 30 MG/ML VIAL ONE (09:04)
[2021-01-10] MEDS ORDERED: MIDAZOLAM 2 MG/2 ML (VERSED) VIAL ONE (09:05)
[2021-01-10 09:13] LABS: BASOPHILS % (AUTO) 1 % (0-10); EOSINOPHILS # (AUTO) 0.1 10^3/uL (0.0-0.3); EOSINOPHILS % (AUTO) 2 % (0-10); HEMATOCRIT 37 % (35-52); HEMOGLOBIN 10.9 g/dL (11.5-16.0); LYMPHOCYTES # (AUTO) 1.4 10^3/uL (1.0-4.0); LYMPHOCYTES % (AUTO) 22 % (12-44); MEAN CORPUSCULAR HEMOGLOBIN 24 pg (25-34); MEAN CORPUSCULAR HGB CONC 30 g/dL (32-36); MEAN CORPUSCULAR VOLUME 80 fL (80-99); MEAN PLATELET VOLUME 9.6 fL (9.0-12.2); MONOCYTES # (AUTO) 0.4 10^3/uL (0.0-1.0); MONOCYTES % (AUTO) 7 % (0-12); NEUTROPHILS # (AUTO) 4.5 10^3/uL (1.8-7.8); NEUTROPHILS % (AUTO) 69 % (42-75); PLATELET COUNT 286 10^3/uL (130-400); WHITE BLOOD COUNT 6.5 10^3/uL (4.3-11.0)
[2021-01-10] MEDS ORDERED: SEVOFLURANE (ULTANE) 15 ML INHAL SOLN ONE (09:33)
[2021-01-10] MEDS ORDERED: ONDANSETRON 4 MG/2 ML (SDV) Z0FRAN IVP PRN ×2 (09:45)
[2021-01-10] MEDS ORDERED: ACETAMINOPHEN 500 MG TAB (TYLENOL) PO PRN (09:45)
[2021-01-10] MEDS ORDERED: ACETAMINOPHEN 500 MG TAB (TYLENOL) PO ONE (09:45)
[2021-01-10] MEDS ORDERED: MEPERIDINE (DEMEROL) INJ 50 MG/ML IVP ONE (09:45)
[2021-01-10] MEDS ORDERED: morphine INJ 10 MG/ML 1ML (SYR OR VIAL) IVP ONE (09:45)
[2021-01-10] MEDS ORDERED: KETOROLAC 30 MG/ML VIAL IVP ONE (09:45)
[2021-01-10] MEDS ORDERED: D5 LR IV SOLUTION 1,000 ML IV SCH (09:45)
--- NOTE | 2021-01-10 09:47 | Operative Report ---
Operative Report Date of Procedure/Surgery Jan 10, 2021 Surgeon (s) LUIS SINCLAIR DO Professional Security Officer (s): na Post-Operative Diagnosis THICKENED ENDOMETRIUM, MENORRHAGIA BREAST CANCER ANEMIA Procedure Performed DILATION AND CURETTAGE Description of Procedure Anesthesia Type: General Estimated blood loss (mL): MINIMAL Specimen(s) collected/removed ENDOMETRIAL CURETTINGS Description of the Procedure this is a repeat procedure as the pathology from her first dilation and curettage was misplaced or discarded. Due to the recent diagnosis of breast cancer and potential treatments, it is imperative that the thickened endometrium be evaluated. With informed consent, the patient was taken to the operating room where general anesthesia was found to be adequate. She was prepped and draped in the usual sterile fashion in the dorsolithotomy position. The bladder was drained of clear, yellow urine. A speculum was placed in the vagina and the cervix was grasped with the tenaculum and the cervix was gently dilated. A small curette was inserted and the tissue was sent for pathology. The instruments were removed from the cervix and any bleeding was controlled with pressure on the cervix. The instruments were removed from the vagina. The patient was then awakened and taken to the recovery room in a stable condit ion. Sponge, instrument, and laparotomy sponges counts were correct times two. Findings of the Procedure MIN-MOD AMOUNT OF POLYPOID APPEARING TISSUE Allergies and Home Medications Allergies Coded Allergies: No Known Drug Allergies (Unverified , 09/29/20) Home Medications Acetaminophen 500 Mg Tablet, 1,000 MG PO Q8H PRN for PAIN-MILD (1-4) Prescribed by: LUIS SINCLAIR on 01/10/21 0949 Ferrous Sulfate 324 Mg Tablet.dr, 324 MG PO TIDWM Prescribed by: TIA BARAKAT on 12/14/20 1709 Last Action: Reviewed Patient Home Medication List Home Medication List Reviewed: Yes LUIS SINCLAIR DO Jan 10, 2021 09:47
[2021-01-10] MEDS ORDERED: ACET-93 PO (09:49)
--- NOTE | 2021-01-10 09:50 | Discharge Inst-Women's Service ---
Discharge Inst-Women's Serv Depart Medication/Instructions New, Converted or Re-Newed RX: Other (HAS AT HOME) Final Diagnosis BREAST CANCER THICKENED ENDOMETRIUM ANEMIA MENORRHAGIA Problems Reviewed?: Yes Consults/Follow Up Additional Follow Up: Yes (WILL CALL PATIENT/GUARDIAN WITH RESULTS) Activity Activity: Activity as Tolerated Driving Instructions: No Driving for 24 Hours NO SMOKING: NO SMOKING Nothing Inside Vagina: No Douching, No [place], No Tampons Diet Discharge Diet: No Restrictions Symptoms to Report to : Bleeding Excessive, Pain Increased, Fever Over 101 Degrees F, Vaginal Bleeding Increase, Vaginal Discharge Foul For Any Problems or Questions: Contact Your Physician LUIS SINCLAIR DO Jan 10, 2021 09:50
--- NOTE | 2021-01-10 10:13 | Anesthesia-General Post-Op ---
General Patient Condition Mental Status/LOC: Same as Preop Cardiovascular: Satisfactory Nausea/Vomiting: Absent Respiratory: Satisfactory Pain: Controlled Complications: Absent Post Op Complications Complications None Follow Up Care/Instructions Patient Instructions None needed. Anesthesia/Patient Condition Patient Condition Patient is doing well, no complaints, stable vital signs, no apparent adverse anesthesia problems. No complications reported per nursing. SURENDRA GALINDO CRNA Jan 10, 2021 10:13
== END 2021-01-10 11:40 | disposition home or self-care (01) ==
LOC: SDC 08:18
PROVIDERS: ATTEND Obstetrics & Gynecology
DX: N92.0 Excessive and frequent menstruation with regular cycle (principal); R93.89 Abnormal findings on diagnostic imaging of other specified body structures; C50.919 Malignant neoplasm of unspecified site of unspecified female breast; D63.0 Anemia in neoplastic disease; D62 Acute posthemorrhagic anemia; Z79.899 Other long term (current) drug therapy
CPT/HCPCS: 36415; 84703; 85025; 87081; 88305